=== PATIENT | male | born 1990 | race Caucasian/White ===

== ENCOUNTER → 2020-09-27 | Outpatient (CLI) | payer OTHER ==
[~2020-09-27] MED LIST: BENADRYL 50MG C50 MG PO; FELDENE10 MG PO
== END ==
LOC: RAD 12:24
DX: G90.519 Complex regional pain syndrome I of unspecified upper limb (principal); M79.2 Neuralgia and neuritis, unspecified; M79.641 Pain in right hand; M79.89 Other specified soft tissue disorders
CPT/HCPCS: 73120

== ENCOUNTER 2021-05-18 13:42 | Emergency (ER) | payer OTHER | END 2021-05-18 16:14 | disposition home or self-care (01) | LOC: ER1 13:42 | DX: S93.402A Sprain of unspecified ligament of left ankle, initial encounter (principal); F17.200 Nicotine dependence, unspecified, uncomplicated; W19.XXXA Unspecified fall, initial encounter | CPT/HCPCS: 73610; 73630; 99283 ==

== ENCOUNTER 2021-07-17 21:46 | Emergency (ER) | payer OTHER | END 2021-07-17 22:02 | disposition home or self-care (01) | LOC: ER1 21:46 | DX: M79.672 Pain in left foot (principal); F17.210 Nicotine dependence, cigarettes, uncomplicated; Z88.0 Allergy status to penicillin | CPT/HCPCS: 73630; 99283 ==

== ENCOUNTER 2021-08-05 08:49 | Inpatient (IN) | payer OTHER ==
[~2021-08-05] VITALS: Ht 182.9 cm; Wt 113.4 kg
[2021-08-05 09:38] LABS: HEMOGLOBIN 14.7 gm/dl (14.0-17.5); RED BLOOD COUNT 4.41 M/UL (4.20-5.50)
[2021-08-05 10:23] LABS: BUN/CREATININE RATIO 10 (0-10)
[2021-08-05] MEDS ORDERED: NEURONTIN400 MG PO (11:26)
[2021-08-05 19:27] LABS: HEMOGLOBIN 13.6 gm/dl (14.0-17.5); RED BLOOD COUNT 4.1 M/UL (4.20-5.50); WHITE BLOOD COUNT 14.4 K/UL (4.5-11.0)
[2021-08-05 20:13] LABS: BUN/CREATININE RATIO 11 (0-10)
[2021-08-06 05:43] LABS: HEMOGLOBIN 13.3 gm/dl (14.0-17.5); RED BLOOD COUNT 4.13 M/UL (4.20-5.50); WHITE BLOOD COUNT 12.2 K/UL (4.5-11.0)
[2021-08-06 06:02] LABS: BUN/CREATININE RATIO 14 (0-10)
[2021-08-06 17:01] LABS: BORDETELLA PARAPERTUSSIS Not Detected (Not Detectd); BORDETELLA PERTUSSIS Not Detected (Not Detectd); CHLAMYDIA PNEUMONIAE Not Detected (Not Detectd); CORONAVIRUS HKU1 Not Detected (Not Detectd); CORONAVIRUS NL63 Not Detected (Not Detectd); CORONAVIRUS OC43 Not Detected (Not Detectd); CORONOAVIRUS 229E Not Detected (Not Detectd); HUMAN METAPNEUMOVIRUS Not Detected (Not Detectd); HUMAN RHINOVIRUS/ENTEROVIRUS Not Detected (Not Detectd); INFLUENZA A Not Detected (Not Detectd); INFLUENZA B Not Detected (Not Detectd); MYCOPLASMA PNEUMONIAE Not Detected (Not Detectd); PARAINFLUENZA VIRUS 1 Not Detected (Not Detectd); PARAINFLUENZA VIRUS 2 Not Detected (Not Detectd); PARAINFLUENZA VIRUS 3 Not Detected (Not Detectd); PARAINFLUENZA VIRUS 4 Not Detected (Not Detectd); RESPIRATORY SYNCYTIAL VIRUS Not Detected (Not Detectd)
[2021-08-06 18:11] LABS: SARS-CoV-2 NOT DETECTED (Not Detectd)
[2021-08-07 04:01] LABS: HEMOGLOBIN 13.3 gm/dl (14.0-17.5); RED BLOOD COUNT 4.04 M/UL (4.20-5.50); WHITE BLOOD COUNT 13.9 K/UL (4.5-11.0)
[2021-08-07 04:27] LABS: BUN/CREATININE RATIO 15 (0-10)
[2021-08-07] MEDS ORDERED: ASPIRIN EC81 MG PO (10:54)
[2021-08-07] MEDS ORDERED: CARVEDILOL3.125 MG PO (10:54)
[2021-08-07] MEDS ORDERED: ATORVASTATIN CA80 MG PO (10:54)
[2021-08-07] MEDS ORDERED: LEVOFLOXACIN750 MG PO (10:54)
[2021-08-07] MEDS ORDERED: NITROGLYCERIN0.4 MG SL (10:54)
[2021-08-07] MEDS ORDERED: BRILINTA 90 MG90 MG PO (10:54)
== END 2021-08-07 13:10 | disposition home or self-care (01) | DRG 246 ==
LOC: ER1 08:49 → CDU 09:50 → CCU 09:50 → CDU 10:30 → ZOBSOF 10:30 → PROG CARE 10:33 → CCU 11:10 → PROG CARE 08-06 17:43
PROVIDERS: Emergency Medicine; Internal Medicine; ADMIT Internal Medicine Interventional Cardiology
PROC: 027034Z Dilation of Coronary Artery, One Artery with Drug-eluting Intraluminal Device, Percutaneous Approach (ICD-10-PCS; 2021-08-05)
PROC: 4A023N7 Measurement of Cardiac Sampling and Pressure, Left Heart, Percutaneous Approach (ICD-10-PCS; 2021-08-05)
PROC: B2111ZZ Fluoroscopy of Multiple Coronary Arteries using Low Osmolar Contrast (ICD-10-PCS; 2021-08-05)
PROC: B24BZZZ Ultrasonography of Heart with Aorta (ICD-10-PCS; principal; 2021-08-06)
DX: I21.09 ST elevation (STEMI) myocardial infarction involving other coronary artery of anterior wall (principal); J18.9 Pneumonia, unspecified organism; Z68.42 Body mass index [BMI] 45.0-49.9, adult; F17.210 Nicotine dependence, cigarettes, uncomplicated; Z20.822 Contact with and (suspected) exposure to COVID-19; R74.01 Elevation of levels of liver transaminase levels; G47.33 Obstructive sleep apnea (adult) (pediatric); R31.9 Hematuria, unspecified; E66.9 Obesity, unspecified; Z82.49 Family history of ischemic heart disease and other diseases of the circulatory system; Z88.0 Allergy status to penicillin; Z83.3 Family history of diabetes mellitus; Z79.82 Long term (current) use of aspirin
CPT/HCPCS: ECHO; 0240U; 36415; 71045; 80048; 80053; 80061; 80307; 81001; 82550; 82553; 83874; 83880; 84484; 85025; 85027; 85347; 85610; 85730; 87040; 87205; 87633; 93005; 93306; 94760; 97161; 99285; C1725; C1769; C1874; C1887; J1170; J1644; J1650; J2250; J2270; J2405; J3010; J3246; J7030; J7040; Q9965

== ENCOUNTER 2021-09-07 18:32 | Emergency (ER) | payer OTHER ==
[~2021-09-07 18:32] MED LIST changes: +ASPIRIN EC81 MG PO; +ATORVASTATIN CA80 MG PO; +BRILINTA 90 MG90 MG PO; +CARVEDILOL3.125 MG PO; +LEVOFLOXACIN750 MG PO; +NEURONTIN400 MG PO; +NITROGLYCERIN0.4 MG SL
[2021-09-07 20:09] LABS: HEMOGLOBIN 14.3 gm/dl (14.0-17.5); RED BLOOD COUNT 4.47 M/UL (4.20-5.50); WHITE BLOOD COUNT 3.6 K/UL (4.5-11.0)
[2021-09-07 20:24] LABS: BUN/CREATININE RATIO 11 (0-10)
== END 2021-09-07 22:49 | disposition home or self-care (01) ==
LOC: ER1 18:32
PROVIDERS: Physician Assistant Medical
DX: U07.1 COVID-19 (principal); R52 Pain, unspecified; I25.2 Old myocardial infarction; Z88.0 Allergy status to penicillin; F17.200 Nicotine dependence, unspecified, uncomplicated
CPT/HCPCS: 71045; 80053; 82550; 82553; 83874; 84484; 85025; 85379; 93005; 99285; U0002

== ENCOUNTER 2021-09-11 12:05 | Emergency (ER) | payer OTHER ==
[2021-09-11 13:10] LABS: HEMOGLOBIN 13.1 gm/dl (14.0-17.5); RED BLOOD COUNT 4.28 M/UL (4.20-5.50); WHITE BLOOD COUNT 2.1 K/UL (4.5-11.0)
[2021-09-11 13:33] LABS: BUN/CREATININE RATIO 8 (0-10)
[2021-09-11] MEDS ORDERED: ISMO TAB 20 MG20 MG PO (16:50)
[2021-09-11] MEDS ORDERED: DOXYCYCLINE MO100 MG PO (16:50)
== END 2021-09-11 17:03 | disposition home or self-care (01) ==
LOC: ER1 12:05
PROVIDERS: Physician Assistant Medical
DX: U07.1 COVID-19 (principal); J12.82 Pneumonia due to coronavirus disease 2019; I25.2 Old myocardial infarction; F17.210 Nicotine dependence, cigarettes, uncomplicated; Z95.5 Presence of coronary angioplasty implant and graft; Z88.0 Allergy status to penicillin
CPT/HCPCS: 71045; 80053; 82550; 82553; 83605; 83690; 83874; 83880; 84484; 85025; 85379; 85610; 93005; 96374; 99285; J1100; Q9967

== ENCOUNTER → 2022-03-23 | Outpatient (CLI) | payer OTHER ==
[~2022-03-23] MED LIST changes: +DOXYCYCLINE MO100 MG PO; +ISMO TAB 20 MG20 MG PO
== END ==
LOC: HEART 5 11-17 10:00
DX: I25.2 Old myocardial infarction (principal); I42.9 Cardiomyopathy, unspecified; I08.1 Rheumatic disorders of both mitral and tricuspid valves
CPT/HCPCS: 93306